=== PATIENT | female | born 1965 | race Caucasian/White ===

== ENCOUNTER → 2018-05-15 12:55 | Outpatient (CLI) | payer SELFPAY | PROVIDERS: Family Provider Student in an Organized Health Care Education/Training Program; PCP Student in an Organized Health Care Education/Training Program; Referring Provider Psychiatry & Neurology Psychiatry; Visit Provider Psychiatry & Neurology Psychiatry | DX: G47.33 Obstructive sleep apnea (adult) (pediatric) (principal); G47.00 Insomnia, unspecified; I10 Essential (primary) hypertension ==

== ENCOUNTER 2019-06-18 10:27 | Emergency (ER) | payer MEDICAID, SELFPAY ==
[2019-06-18 10:29] VITALS: BP 166/91; PULSE 95; RESP 16; TEMP 36.3; O2SAT 99; BMI 37.4
--- NOTE | 2019-06-18 10:52 | ED.VISSUMM ---
- ER Visit Summary Date of Service: 06/18/19 Chief Complaint: Cough History of Present Illness: The patient is a 54 F who presents with a cough that is been getting worse over the past 3 to 4 days. Patient states she went to an urgent care 2 days ago and had rapid flu and rapid strep done which were both negative. Patient states she got in order to get a COVID-19 test done in [place] but she is unable to make it there to have this drawn. Patient states her cough is been persistent. Patient admits to subjective fevers but states she does not have a thermometer to take her temperature. Patient states she is coughing up green and red sputum. Patient denies any chest pain. Patient denies any shortness of breath. Physical Examination: Vital signs are stable. Patient is afebrile. Patient is in no acute distress. Oral mucosa is pink and moist. Neck is supple. Trachea is midline. There is no JVD noted. Heart was regular rate and rhythm. Lungs are clear and equal bilaterally. Abdomen is soft. Bowel sounds are normal. There is no tenderness. There is no rebound or guarding noted. Skin is warm dry. Cranial nerves II through XII are intact. There are no focal motor or sensory deficits noted. Extremities are intact. There is no calf tenderness or edema. Test Results: PA and lateral chest x-ray was obtained. There is poor inspiratory effort but no acute cardiopulmonary process. This is interpreted by the radiologist and reviewed by myself. Emergency Department Course and Treatment: Patient was advised that this is most likely a viral upper respiratory infection. Patient was advised that this could be COVID-19. Patient was advised to get her testing done if possible. Patient was otherwise advised to stay at home and quarantine herself for the next 2 weeks. Patient was instructed to take Tylenol and/or ibuprofen as needed for fevers or aches. Patient was instructed to drink plenty of fluids. Patient was instructed to follow-up with her primary care physician in 5 to 7 days. Patient understood and was agreeable with the plan. All questions were answered. Disposition: Discharge home Impression: Viral upper respiratory infection This note was generated with [employer] software. It may contain incorrect words, spelling, and punctuation that were not noted in review of the chart prior to signing ED Disposition - Plan for ED Patient: Disposition: Home or Assisted Living Diagnosis: Viral upper respiratory tract infection with cough Instructions: URI, Viral, No Abx (Adult) Referrals: Ruy Grant DO [Primary Care Provider] - 5-7 Days
--- NOTE | 2019-06-18 10:53 | RAD_ITS ---
STUDY: X-RAY CHEST REASON FOR EXAM: Female, 54 years old. COUGH AND CONGESTION X 4 DAYS TECHNIQUE: PA and lateral views of the chest. COMPARISON: None. FINDINGS: Limited inspiratory effort. Mild degree of penetration at the right lung base most likely secondary to poor inspiration. There is no demonstrated pleural abnormality. Normal size heart. Normal mediastinum and fernanda. Normal visualized pulmonary arteries. Normal visualized aortic arch and descending thoracic aorta. There are mild degenerative changes of the visualized thoracic spine. Normal visualized ribs, clavicles, and shoulders. There is no demonstrated abnormality of the visualized soft tissue structures of the upper abdomen. RAD/Chest PA and Lateral IMPRESSION: Mild increased markings at the right lung base suggestive of a poor inspiratory effort. Follow-up is recommended. Electronically Signed: Kashif Khan, at 11:26 EDT , Service support ,
== END 2019-06-18 11:52 | disposition home or self-care (01) ==
PROVIDERS: Emergency Provider Emergency Medicine; PCP Student in an Organized Health Care Education/Training Program
DX: J06.9 Acute upper respiratory infection, unspecified (principal); I10 Essential (primary) hypertension; E03.9 Hypothyroidism, unspecified
CPT/HCPCS: 71046; 99282

== ENCOUNTER → 2020-07-31 11:52 | Outpatient (CLI) | payer MEDICAID, SELFPAY ==
[2020-07-31 15:37] LABS: T3 Total - Triiodothyronine 1.15 ng/mL (0.6-1.81)
[2020-07-31 15:59] LABS: Free T3 2.7 pg/mL (2.18-3.98); T4 Total, Thyroxin 18.2 ug/dL (4.8-13.9); Thyroid Stim Hormone (TSH) 0.24 uIU/mL (0.358-3.74)
[2020-08-02 08:32] LABS: Thyroid Peroxidase AB 81 IU/mL (0-34)
== END ==
PROVIDERS: PCP Student in an Organized Health Care Education/Training Program; Referring Provider Physician Assistant Medical; Visit Provider Physician Assistant Medical
DX: L80 Vitiligo (principal); D48.5 Neoplasm of uncertain behavior of skin
CPT/HCPCS: 36415; 84436; 84439; 84443; 84480; 84481; 86376

== ENCOUNTER → 2022-01-05 | Outpatient (CLI) | payer MEDICAID, SELFPAY ==
--- NOTE | 2022-01-05 14:36 | NEURO ---
NCS and/or EMG Patient Report Ordering Doctor: Ruy Grant DATE OF SERVICE: 01/05/22 Lillie presents for electrodiagnostic testing of the left upper limb. She has complaints of pain from the left shoulder into the upper arm. She reports weakness in the left hand. Electrodiagnostic findings: Testing was initiated in the left median motor nerve, which demonstrated normal distal latency and amplitude. Following the stimulation, the patient reported that she was unable to continue due to discomfort from the test. No additional nerves were tested and needle EMG was not performed. Electrodiagnostic impression this is a limited study in the left upper limb. Distal response of the median motor nerve shows normal latency and amplitude. No assessment regarding the patient's condition can be made with this limited data.
== END | disposition home or self-care (01) ==
LOC: PSN 13:16
PROVIDERS: PCP Dermatology; Referring Provider Student in an Organized Health Care Education/Training Program; Visit Provider Student in an Organized Health Care Education/Training Program
DX: R20.2 Paresthesia of skin (principal); R20.8 Other disturbances of skin sensation
CPT/HCPCS: 95907

== ENCOUNTER → 2023-11-07 | Outpatient (CLI) | payer MEDICAID, SELFPAY | END | disposition home or self-care (01) | LOC: SL 19:39 | PROVIDERS: PCP Dermatology | DX: Z01.818 Encounter for other preprocedural examination (principal); R06.83 Snoring; R53.83 Other fatigue | CPT/HCPCS: 95810 ==

== ENCOUNTER → 2024-07-16 | Outpatient (CLI) | payer MEDICAID, SELFPAY | END | disposition home or self-care (01) | PROVIDERS: PCP Student in an Organized Health Care Education/Training Program; Referring Provider Nurse Practitioner Family; Visit Provider Nurse Practitioner Family | DX: G47.33 Obstructive sleep apnea (adult) (pediatric) (principal) | CPT/HCPCS: 95811 ==